=== PATIENT | male | born 1990 | race African-American/Black ===

== ENCOUNTER → 2016-12-13 | Outpatient (CLI) | payer BC ==
--- NOTE | 2016-12-13 13:35 | KCIC ---
MRI Lumbar Spine without contrast History: Low back pain Technique: Multiplanar, multi sequential noncontrast MR imaging was performed of the lumbar spine. Contrast: None Comparison: None Findings: Lumbar vertebral body stature is preserved. There is straightening of the lumbar spine. There is mild to moderate degenerative disc disease L5-S1. There is posterior annular tear at L5-S1. Conus terminates at T12. There is no significant marrow edema. There is negligible posterior subluxation of L5 relative to S1. L3-L4: Spinal canal and neural foramina are adequate. L4-L5: There is mild buckling of the ligamentum flavum. There is a negligible posterior bulge. Spinal canal and neural foramina are adequate. L5-S1: There is negligible posterior disc osteophyte complex and bulge. There is [id number] narrowing of the lateral recesses bilaterally at the location descending S1 nerve roots, narrowing in part on developmental basis. The neural foramina are adequate. Impression: 1. There is mild to moderate narrowing of the lateral recesses bilaterally at the location of the descending S1 nerve roots in part on a developmental basis, also minimal disc osteophyte complex and bulge at this level. There is [id number] degenerative disc disease L5-S1, posterior annular tear at this level. Electronically signed by: Imtiaz Massey MD (12/13/2016 1:32 PM)
== END | disposition home or self-care (01) ==
LOC: KCIC MRI 12:32
PROVIDERS: ATTEND Physician Assistant
DX: M51.37 Other intervertebral disc degeneration, lumbosacral region (principal)
CPT/HCPCS: 72148